=== PATIENT | male | born 1960 | race Caucasian/White ===

== ENCOUNTER 2019-03-16 21:12 | Emergency (ER) | payer OTHER ==
[~2019-03-16] VITALS: Ht 190.5 cm; Wt 99.8 kg
--- NOTE | 2019-03-17 17:50 | EKG ---
[facility] [address] [facility] [place], [place] [address] Signed Normal sinus rhythm Possible Inferior infarct , age undetermined Abnormal ECG No previous ECGs available Confirmed by RAJIV WILLIS DO ([id number]) on 03/17/2019 5:50:29 PM Electronically Signed By: RAJIV WILLIS DO 03/17/19 1750 PATIENT NAME: ALVA ALLEN Electrocardiogram DATE OF : 62 PHYSICIAN: RAJIV WILLIS DO REPORT #: [id number] REPORT IS CONFIDENTIAL AND NOT TO BE RELEASED WITHOUT AUTHORIZATION
[2019-05-20] MEDS ORDERED: OXYCODON-ACETA1 EAC2 PO (10:03)
[2019-05-20] MEDS ORDERED: IBUPROFEN600 MG PO (10:03)
[2019-05-20] MEDS ORDERED: TYLENOL EXTRA500 MG PO (10:03)
--- NOTE | 2019-05-20 10:40 | NUR ---
PT ALERT, ORIENTED AND SUPPORTED BY HIS ISABELLE. PT SEEMS PREPARED, WAITING FOR DR QUINTERO TO COME IN. PT DID ASK IF PAPERWORK FOR FMLA WAS TO BE FILLE OUT HERE OR AT DR QUINTERO'S OFFICE. MENTIONED TO HIS RN MICHELLE, SHE WILL FOLLOW UP. PT REQUESTED PRAYER, WILL FOLLOW NEEDED
== END 2019-03-17 00:51 | disposition home or self-care (01) ==
LOC: ED 21:12
DX: K46.9 Unspecified abdominal hernia without obstruction or gangrene (principal); Z88.2 Allergy status to sulfonamides
CPT/HCPCS: 74177; 80053; 81001; 83690; 85025; 93005; 93010; 99284-25; Q9967

== ENCOUNTER 2020-02-07 12:09 | Day surgery (SDC) | payer OTHER ==
[~2020-02-07] VITALS: Ht 190.5 cm; Wt 88.5 kg
[~2020-02-07 12:09] MED LIST: IBUPROFEN600 MG PO; OXYCODON-ACETA1 EAC2 PO; TYLENOL EXTRA500 MG PO
[2020-02-07] MEDS ORDERED: GLUCOSAMINE1000 MG PO (12:29)
[2020-02-07] MEDS ORDERED: VITAMIN C500 MG PO (12:29)
[2020-02-07] MEDS ORDERED: FISH OIL 1,0001 EAC2 NG (12:29)
[2020-02-07] MEDS ORDERED: TURMERIC500 M2 PO (12:30)
[2020-02-07] MEDS ORDERED: VITAMIN D310 MCG (12:30)
--- NOTE | 2020-02-07 14:09 | NUR ---
02/07/20 1409 Sheets,Katerin 1356 PT ARRIVED TO PACU ON 2L VIA NC, VSS. PT WAKES EASILY AND REPORT PAIN IN ABD, PT ENCOURAGED TO PASS GAS. 1402 O2 REMOVED. 1405 MD AT BEDSIDE AND PT TALKING TO MD.
--- NOTE | 2020-02-09 16:02 | OR ---
[facility] [address] [place], [place] [address] Signed DATE OF OPERATION: 02/07/2020 SURGEON: Haleigh Quintero MD PREOPERATIVE DIAGNOSIS: Colon screening. POSTOPERATIVE DIAGNOSIS: Diverticulosis, sigmoid and left colon. PROCEDURE: Total colonoscopy to cecum. ANESTHESIA: Intravenous sedation, fentanyl 150 mcg, Versed 6 mg. INDICATIONS: This 59-year-old white man is a patient of Marilyn Yadav M.D. He is referred for screening colonoscopy. He underwent what sounds like flexible sigmoidoscopy at age 51 while in [place], which was said to be negative. He has no family history of colon cancer and no symptoms of bleeding, diarrhea, or constipation. He is admitted at this time to undergo colonoscopy. He understands the risks of bleeding, infection, and perforation, and wished to proceed. FINDINGS: The prep was excellent. Complete colonoscopy was undertaken to the cecum. There were numerous diverticula of the sigmoid and left colon, but no signs of polyps or colitis. DESCRIPTION OF PROCEDURE: The patient was brought to the endoscopy suite and placed in lateral decubitus position, given intravenous sedation to the point of slurred speech and nystagmus, digital rectal examination was normal. An Olympus video colonoscope was passed into the rectum and manipulated throughout the colon noting diverticular changes of the sigmoid and left colon. The scope was advanced ultimately to the cecum. The ileocecal valve and appendiceal orifice were normal. The scope was withdrawn from that point. Examination throughout showed no sign of abnormality until the left colon and sigmoid, where diverticular changes were noted. Retroflexed view of the rectum was normal. Scope was removed. The patient was taken to the recovery room in good condition. Electronically Signed By: HALEIGH QUINTERO MD 02/09/20 1602 PATIENT NAME: ALVA ALLEN OPERATIVE REPORT DATE OF : 62 REPORT #: [id number] PHYSICIAN: HALEIGH QUINTERO MD PCP: MARILYN YADAV MD REPORT IS CONFIDENTIAL AND NOT TO BE RELEASED WITHOUT AUTHORIZATION [facility] [address] [place], [place] [address] Signed CONCLUDING DIAGNOSIS: Diverticulosis. PLAN: Recommend high-fiber diet. Recommend repeat colonoscopy in 5-10 years or sooner if symptoms should occur. He will return to the ongoing care of Dr. Yadav otherwise. Haleigh Quintero MD JM/MODL /[id number] cc: Marilyn Yadav MD Copies: MARILYN YADAV MD ~ Electronically Signed By: HALEIGH QUINTERO MD 02/09/20 1602 PATIENT NAME: ALVA ALLEN OPERATIVE REPORT DATE OF : 62 REPORT #: [id number] PHYSICIAN: HALEIGH QUINTERO MD PCP: MARILYN YADAV MD REPORT IS CONFIDENTIAL AND NOT TO BE RELEASED WITHOUT AUTHORIZATION
== END 2020-02-07 14:45 | disposition home or self-care (01) ==
LOC: DS 12:09 → OPS 12:09 → DS 14:00 → OPS 14:00 → DS 02-23 14:00
PROVIDERS: ATTEND Surgery
PROC: 0DJD8ZZ Inspection of Lower Intestinal Tract, Via Natural or Artificial Opening Endoscopic (ICD-10-PCS; principal; 2020-02-07 14:00)
DX: Z12.11 Encounter for screening for malignant neoplasm of colon (principal); K57.30 Diverticulosis of large intestine without perforation or abscess without bleeding; K40.90 Unilateral inguinal hernia, without obstruction or gangrene, not specified as recurrent; Z23 Encounter for immunization; Z88.2 Allergy status to sulfonamides; Z79.899 Other long term (current) drug therapy; Z90.49 Acquired absence of other specified parts of digestive tract; Z98.890 Other specified postprocedural states
CPT/HCPCS: 90686; 99153; G0500; J2250; J3010; J7121

== ENCOUNTER 2022-04-18 18:33 | Emergency (ER) | payer OTHER ==
[~2022-04-18] VITALS: Ht 190.5 cm; Wt 88.5 kg
[~2022-04-18 18:33] MED LIST changes: +FISH OIL 1,0001 EAC2 NG; +GLUCOSAMINE1000 MG PO; +TURMERIC500 M2 PO; +VITAMIN C500 MG PO; +VITAMIN D310 MCG
[2022-04-18] MEDS ORDERED: HYDROCODON-ACE1 EA10 PO (22:02)
== END 2022-04-18 21:00 | disposition home or self-care (01) ==
LOC: ED 18:33
PROC: 0RSKXZZ Reposition Left Shoulder Joint, External Approach (ICD-10-PCS; principal; 2022-04-18)
DX: S42.292A Other displaced fracture of upper end of left humerus, initial encounter for closed fracture (principal); S43.015A Anterior dislocation of left humerus, initial encounter; M75.82 Other shoulder lesions, left shoulder; Z88.2 Allergy status to sulfonamides; Z79.899 Other long term (current) drug therapy; W00.1XXA Fall from stairs and steps due to ice and snow, initial encounter
CPT/HCPCS: 73020; 73030; 80053; 85025; 85610; 87502; 99283-25; A9270; J1170; J2405; U0003